=== PATIENT | female | born 1960 | race Asian ===

== ENCOUNTER → 2017-01-18 | Outpatient (CLI) | payer BC, OTHER ==
[~2017-01-18] MED LIST: ACET-1311 PO; ERGO1TAB12 PO; GLC500 PO; OMEP20CA9 PO
[2017-01-18 18:36] LABS: ALKALINE PHOSPHATASE 183 U/L (45-117); ALT/SGPT 39 U/L (12-78); AST/SGOT 21 U/L (15-37); BLOOD UREA NITROGEN 13 mg/dl (7-18); BUN/CREATININE RATIO 14.7 (10-20); CALCIUM 9.1 mg/dl (8.5-10.1); CARBON DIOXIDE 29 mmol/L (21-32); CHLORIDE 100 mmol/L (98-107); CREATININE 0.86 mg/dl (0.60-1.20); GLUCOSE 439 mg/dl (70-99); SODIUM 137 mmol/L (136-145); THYROID STIMULATING HORMONE 0.876 uIu/ml (0.300-4.500)
[2017-01-18 19:01] LABS: BETA-HYDROXYBUTYRATE 1.25 mg/dL (0.2-2.81)
== END | disposition home or self-care (01) ==
LOC: C.LABBFT 14:00
PROVIDERS: ATTEND Physician Assistant Medical
DX: Z87.19 Personal history of other diseases of the digestive system (principal)

== ENCOUNTER 2017-01-23 21:41 | Emergency (ER) | payer BC ==
[~2017-01-23] VITALS: Ht 149.9 cm; Wt 56.5 kg
[~2017-01-23 21:41] MED LIST changes: -GADAVIST IV PRN; -GLC500 PO
[2017-01-23 21:55] VITALS: TEMP 37; Ht 149.9 cm; Wt 56.5 kg
[2017-01-23] MEDS ORDERED: GLC500 PO (22:21)
[2017-01-23 23:07] VITALS: BP 136/79; PULSE 80; O2SAT 96
--- NOTE | 2017-01-23 23:31 | ENT CONSULTATION ---
DATE OF CONSULTATION: 01/23/2017 OTOLARYNGOLOGY HEAD AND NECK EMERGENCY ROOM CONSULTATION I have been asked by Dr. Moyer in the [facility] Emergency Room to evaluate this patient for possible foreign body in her throat. HISTORY OF PRESENT ILLNESS: The patient is a very pleasant 56-year-old female who was eating fish earlier this evening and feels as if she swallowed a fishbone. She points to her left hypopharyngeal airway as a source of her symptoms. She has some mild foreign body sensation and feels as if when she swallows, there is a foreign body in that region. She has some mild pain but no dysphagia. There is no drooling. There is no shortness of breath. ALLERGIES: No known drug allergies. MEDICATIONS: Metformin and omeprazole. PAST MEDICAL HISTORY: 1. Diabetes mellitus. 2. Gastroesophageal reflux disease. PAST SURGICAL HISTORY: 1. Status post . 2. Status post tubal ligation. FAMILY HISTORY: Noncontributory. No bleeding disorders or malignant hyperthermia. SOCIAL HISTORY: The patient is . There is no tobacco, alcohol or illicit drug use. REVIEW OF SYSTEMS: The patient has a foreign body sensation in her throat. She denies any referred otalgia. There is very mild odynophagia, but no dysphagia. There is no shortness of breath or hoarseness. There is no drooling. There is no lightheadedness, dizziness or chest pain. PHYSICAL EXAMINATION: GENERAL: This is a middle-aged female in no acute distress with a normal voice. HEENT: External auditory canals and tympanic membranes are clear bilaterally. Nasal examination reveals midline septum and mild inferior turbinate hypertrophy. Oral cavity and oropharyngeal examination reveals 1+ tonsils and no foreign body in the oral cavity or oropharynx. NECK: Reveals no neck lymphadenopathy, thyroid nodularity or masses. There is no crepitus. PROCEDURE: After administration of topical lidocaine and Afrin to the left nasal cavity, flexible laryngoscopy was performed, inspecting the nasopharynx, hypopharynx, and larynx. After careful visualization of the vallecula and piriform sinuses, I do not see any evidence of foreign body. There is no pooling of secretions. The patient has normal bilateral true vocal fold mobility to the midline. IMPRESSION AND RECOMMENDATIONS: A 56-year-old female who ingested a fishbone, but there is no definitive foreign body on laryngoscopy. The patient was counseled that sometimes these foreign bodies are actually swallowed and that the mucosa is scratched and there is a foreign body sensation that can last up to 6 weeks. However, if her symptomatology worsens or persists beyond 4-6 weeks and/or wants a repeat laryngoscopy in my office, she was given my business card and asked to call for followup as needed. Since there is no foreign body seen on laryngoscopy, I do not believe that she needs to go to the operating room unless her symptoms worsen. If you have any questions regarding this consultation, please do not hesitate to contact me.
--- NOTE | 2017-01-24 02:11 | EMERGENCY ROOM VISIT NOTE ---
History Report prepared by Roselyn: Tj Padilla Under the Supervision of: Dr. Catracho Moyer D.O. First contact with patient: 22:09 Chief Complaint: FOOD BOLUS Stated Complaint: FISH BONE STUCK IN UPPER THROAT Nursing Triage Summary: pt reports I swallowed a fish bone around 1900, able swallow " can feel it poking " History of Present Illness The patient is a 56 year old female who presents to the Emergency Room with complaints of a possible constant throat foreign body beginning 3 hours ago. She states "I swallowed a fishbone". She states that she was eating a small fish when she felt something get stuck in her throat. The patient states that she can feel it stuck in her throat when she drinks or swallows. She has been able to eat bananas successfully and does not feel that any other food has been getting stuck in her throat. She notes that she was recently found to have high blood sugar and is scheduled to undergo testing for possible diabetes. The patient denies any shortness of breath or chest pain. Source of History: patient Onset: 3 hours ago Position: throat Quality: other (foreign body) Timing: constant Modifying Factors (Worsening): other (drinking and swallowing) Associated Symptoms: No SOB Review of Systems See HPI for pertinent positives & negatives. A total of 10 systems reviewed and were otherwise negative. Past Medical & Surgical Medical Problems: (1) MGUS (monoclonal gammopathy of unknown significance) Family History No pertinent family history stated. Social History Smoking Status: Never Smoker Alcohol Use: none Current/Historical Medications Scheduled Ergocalciferol (Vitamin D2), 2,000 UNITS PO WEEKLY Metformin HCl (Metformin HCl), 500 MG PO HS Omeprazole (Prilosec), 20 MG PO QAM Scheduled PRN Acetaminophen (Tylenol), 650 MG PO Q4H PRN for Pain or Fever Allergies Coded Allergies: No Known Allergies (Unverified , 01/23/17) Physical Exam Vital Signs Date Time Temp Pulse Resp B/P Pulse Ox O2 Delivery O2 Flow Rate FiO2 01/23/17 23:07 80 18 136/79 96 Room Air 01/23/17 21:55 37.0 89 18 150/91 97 Room Air Physical Exam GENERAL: Sitting up in bed, disheveled, non-toxic, no acute distress EYE EXAM: normal conjunctiva OROPHARYNX: no exudate, no erythema, lips, buccal mucosa, and tongue normal and mucous membranes are moist NECK: supple, no nuchal rigidity, no adenopathy, non-tender, no stridor LUNGS: Clear to auscultation. Normal chest wall mechanics HEART: no murmurs, S1 normal and S2 normal ABDOMEN: abdomen soft, non-tender, normo-active bowel sounds, no masses, no rebound or guarding. BACK: Back is symmetrical on inspection and there is no deformity, no midline tenderness, no CVA tenderness. SKIN: no rashes and no bruising UPPER EXTREMITIES: upper extremities are grossly normal. LOWER EXTREMITIES: No pitting edema. NEURO EXAM: Normal sensorium, cranial nerves II-XII grossly intact, normal speech, no gross weakness of arms, no gross weakness of legs. Medical Decision & Procedures ED Course ED COURSE: Vital signs were reviewed and showed hypertension The patients medical record was reviewed The above diagnostic studies were performed and reviewed. ED treatments and interventions as stated above. 2212: The patient was evaluated in room C6. A complete history and physical examination was performed. 2305: Upon reevaluation, the patient is resting comfortably. Dr. Kyle has scoped the patient and has found nothing. I discussed my findings with the patient and she understands and agrees with the treatment plan. Based on the patients age, coexisting illnesses, exam and lab findings the decision to treat as an outpatient was made. The patient remained stable while under my care. The patient appeared well at the time of discharge. Medical Decision Differential diagnosis: esophageal abrasion, foreign body in esophagus, aspiration, neck mass, as well as other etiologies were considered. Patient is a 56-year-old female who presents the ER following eating fish. She notes that following swallowing she has felt something is stuck in the left side of her throat. She has been able to eat and drink following this. My exam is fairly benign. Consulted ENT and she was evaluated. He saw no foreign body that was obvious. Recommended following up in 3 weeks if symptoms persist. Patient was discharged to follow-up with primary care doctor. Patient had no other complaints. Discussed with Pt concerning signs and symptoms to watch out for. Pt was instructed to follow up with their PCP and discussed with the patient their option to return to the ED at anytime for persistent or worsening symptoms. The appropriate anticipatory guidance and out- patient management, including indications for return to the emergency department , were explained at length to the patient and understood. Consults Time Called: 2219 Consulting Physician: Dr. Kyle -ENT Returned Call: 2224 I reviewed the patient's case with Dr. Kyle. He will come evaluate the patient in the ED. Impression Primary Impression: Sensation of foreign body in esophagus Scribe Attestation The scribe's documentation has been prepared under my direction and personally reviewed by me in its entirety. I confirm that the note above accurately reflects all work, treatment, procedures, and medical decision making performed by me. Departure Information Dispostion Home / Self-Care Referrals No Doctor, Assigned (PCP) Forms HOME CARE DOCUMENTATION FORM, IMPORTANT VISIT INFORMATION, WORK / SCHOOL INSTRUCTIONS Patient Instructions ED Foreign Body Swallowed Adult, My [employer] Additional Instructions Please follow up with your primary care doctor with in the next 24 hours. Any worsening of your symptoms, please return to the ED immediately. This includes trouble breathing, trouble swallowing, worsening of your symptoms, or any other concerning signs or symptoms from your standpoint. You were seen by ENT and scoped. They did not see any foreign bodies in your throat. If this persist over the next 2-3 weeks please follow up with ENT. Dr. Dowling as listed on the card that he gave you.
== END 2017-01-23 23:15 | disposition home or self-care (01) ==
LOC: C.EDB 21:44 → C.EDC 23:15
DX: R09.89 Other specified symptoms and signs involving the circulatory and respiratory systems (principal); E11.9 Type 2 diabetes mellitus without complications; K21.9 Gastro-esophageal reflux disease without esophagitis; Z98.51 Tubal ligation status

== ENCOUNTER → 2017-01-23 | Outpatient (CLI) | payer BC ==
[~2017-01-23] MED LIST changes: +GADAVIST IV PRN
[2017-01-23 12:38] LABS: ESTIMATED AVERAGE GLUCOSE 346 mg/dl; HA1C FLAG Normal (Normal)
== END | disposition home or self-care (01) ==
LOC: C.LABBFT 07:42
PROVIDERS: ATTEND Internal Medicine
DX: E11.9 Type 2 diabetes mellitus without complications (principal)

== ENCOUNTER → 2017-02-16 | Outpatient (CLI) | payer BC ==
[~2017-02-16] MED LIST changes: +GADAVIST IV PRN; +GLC500 PO
[2017-02-16 18:00] LABS: MEAN CELL VOLUME 86.6 fL (80-100); MEAN CORPUSCULAR HEMOGLOBIN 30.3 pg (25-34); MEAN PLATELET VOLUME 9.1 fL (7.4-10.4); PLATELET COUNT 321 K/uL (130-400); RED BLOOD COUNT 4.39 M/uL (4.2-5.4); WHITE BLOOD COUNT 7.05 K/uL (4.8-10.8)
[2017-02-16 18:22] LABS: COMPLETE YES; EOSINOPHIL % 4.5 %; LYMPH ABS # 3.33 K/uL (1.2-3.4); LYMPHOCYTE % 47.2 %; NEUTROPHILS % 25.9 %; VARIANT LYM ABS # 1.26 K/uL; VARIANT LYMPHOCYTE % 17.9 %
--- NOTE | 2017-02-16 18:24 | DIAGNOSTIC IMAGING REPORT ---
MRI OF THE BRAIN COMBO CLINICAL HISTORY: Blurry vision. COMPARISON STUDY: No priors. TECHNIQUE: MRI of the brain was performed utilizing various T1 and T2-weighted sequences in the axial, sagittal, and coronal planes. Contrast-enhanced sequences were acquired following the administration of 5 cc of Gadavist. FINDINGS: Brain parenchyma: There are numerous patchy foci of T2 signal abnormality identified within the subcortical and periventricular white matter. There is no hemorrhage or mass effect. There is no restricted diffusion to suggest acute ischemia. No enhancing mass lesion is identified on the postcontrast images. Matthews-white matter differentiation is preserved. No extra-axial fluid collection is seen. The cerebellar tonsils are normal in configuration. Ventricles, sulci, and cisterns: Normal in configuration. Pituitary and sella: Unremarkable. Intracranial vasculature: Normal flow voids are maintained at the skull base. Orbits: The bony orbits are grossly intact. Orbital contents are normal in appearance. Sinuses and mastoids: Clear. Calvarium: Unremarkable. Cervical cord: Partially visualized cervical spinal cord is normal in morphology and signal intensity. IMPRESSION: 1. There is no hemorrhage, enhancing mass, or evidence of acute ischemia. 2. There are numerous small foci of T2 signal abnormality identified within the subcortical and periventricular white matter. The appearance is nonspecific, and this likely represents microangiopathic change. Differential considerations would include a demyelinating process such as multiple sclerosis or possibly Lyme disease. Clinical correlation will be essential. Electronically signed by: Rangel Parker M.D. 02/16/2017 6:21 PM Dictated Date/Time: 02/16/2017 6:18 PM
[2017-02-16 18:58] LABS: LYME DISEASE AB IGM NEG (NEG)
[2017-02-16 19:01] LABS: LYME DISEASE AB IGG NEG (NEG)
== END | disposition home or self-care (01) ==
LOC: C.MRI 16:58
PROVIDERS: ATTEND Physician Assistant Medical
DX: H53.8 Other visual disturbances (principal); E11.9 Type 2 diabetes mellitus without complications; R90.89 Other abnormal findings on diagnostic imaging of central nervous system

== ENCOUNTER → 2017-05-07 | Outpatient (CLI) | payer BC ==
[~2017-05-07] MED LIST changes: -GADAVIST IV PRN
== END | disposition home or self-care (01) ==
LOC: C.MAMM 15:34
PROVIDERS: ATTEND Internal Medicine
DX: M85.88 Other specified disorders of bone density and structure, other site (principal)

== ENCOUNTER → 2018-01-24 | Outpatient (CLI) | payer BC ==
[2018-01-24 12:35] LABS: ALBUMIN 3.8 gm/dl (3.4-5.0); ALT/SGPT 26 U/L (12-78); AST/SGOT 21 U/L (15-37); BLOOD UREA NITROGEN 14 mg/dl (7-18); CALCIUM 9.1 mg/dl (8.5-10.1); CARBON DIOXIDE 28 mmol/L (21-32); CREATININE 0.68 mg/dl (0.60-1.20); GLUCOSE 108 mg/dl (70-99); POTASSIUM 4.3 mmol/L (3.5-5.1); SODIUM 139 mmol/L (136-145)
[2018-01-24 12:38] LABS: ALKALINE PHOSPHATASE 85 U/L (45-117); CHOLESTEROL 201 mg/dl (0-200); LDL CHOLESTEROL CALCULATED 96 mg/dl
[2018-01-24 13:15] LABS: HEMOGLOBIN A1C 6.6 % (4.5-5.6)
== END | disposition home or self-care (01) ==
LOC: C.LABBFT 07:13
PROVIDERS: ATTEND Physician Assistant Medical
DX: E55.9 Vitamin D deficiency, unspecified (principal); E11.9 Type 2 diabetes mellitus without complications

== ENCOUNTER → 2018-06-12 | Outpatient (CLI) | payer BC | END | disposition home or self-care (01) | LOC: C.LABBFT 15:27 | PROVIDERS: ATTEND Physician Assistant Medical | DX: R30.0 Dysuria (principal) ==